=== PATIENT | male | born 1980 ===

== ENCOUNTER 2018-04-29 11:33 | Emergency (ER) | payer BC ==
[~2018-04-29] VITALS: Ht 177.8 cm; Wt 133.8 kg
[~2018-04-29 11:33] MED LIST: ACET500; ALBU90OI INH; AMOX500 PO; AMOX875 PO; ASCO500; FLUT.05NI; HYDACE5 PO; IBUP200; PRED20 PO; PSEU120ER; SULTRIDS PO
== END 2018-04-29 13:35 | disposition home or self-care (01) ==
LOC: ER 11:33
DX: M25.531 Pain in right wrist (principal)
CPT/HCPCS: 29125; 99283-25